=== PATIENT | male | born 1950 | race Caucasian/White ===

== ENCOUNTER → 2024-05-03 07:40 | Outpatient (REF) | payer OTHER, SELFPAY | LOC: PAVMRI 07:40 | PROVIDERS: ATTENDING PHYSICIAN Psychiatry & Neurology Neurology; FAMILY PHYSICIAN Physician Assistant | DX: G37.9 Demyelinating disease of central nervous system, unspecified (principal); R90.82 White matter disease, unspecified; R93.7 Abnormal findings on diagnostic imaging of other parts of musculoskeletal system | CPT/HCPCS: 70553; 72156; A9575 ==

== ENCOUNTER → 2024-06-13 11:36 | Outpatient (REF) | payer OTHER, SELFPAY | LOC: PAVMRI 11:36 | PROVIDERS: ATTENDING PHYSICIAN Psychiatry & Neurology Neurology | DX: G37.9 Demyelinating disease of central nervous system, unspecified (principal) | CPT/HCPCS: 72157; A9575 ==